=== PATIENT | male | born 1985 | race Caucasian/White ===

== ENCOUNTER → 2019-12-09 | Outpatient (CLI) | payer BC ==
[2019-12-09 18:18] LABS: HCT 45.8 % (39.0-53.0); HGB 15.1 gm/dL (13.0-17.5); RBC 4.88 m/uL (4.30-5.90); WBC 6.8 k/uL (3.8-10.6)
[2019-12-09 18:19] LABS: Mean Platelet Volume 7.3; Platelet Count 229 k/uL (150-450); RDW 12.7 % (11.5-15.5); Total Eosinophil Count 115 #EOS/uL (150-300)
[2019-12-10 02:07] LABS: Cat Epith & Dander IgE <0.10 kU/L; Dermato. farinae IgE <0.10 kU/L
[2019-12-10 02:08] LABS: Cladosporian herbarum IgE <0.10 kU/L; Cockroach IgE <0.10 kU/L; Dog Dander IgE <0.10 kU/L
[2019-12-10 02:09] LABS: Alternaria alternata IgE <0.10 kU/L; Aspergillus fumagatus IgE <0.10 kU/L
[2019-12-10 02:10] LABS: Birch IgE <0.10 kU/L; Elm IgE <0.10 kU/L; Maple (Box Elder) IgE <0.10 kU/L; Oak IgE <0.10 kU/L; Ragweed,Common IgE <0.10 kU/L
[2019-12-10 02:11] LABS: Red Top (Bentgrass) IgE <0.10 kU/L
[2019-12-10 02:44] LABS: Immunoglobulin E 1.16 IU/mL (0.00-114.00)
== END | disposition home or self-care (01) ==
LOC: LABWHC1 17:01
PROVIDERS: ATTEND Internal Medicine
DX: J30.2 Other seasonal allergic rhinitis (principal); J32.9 Chronic sinusitis, unspecified; J45.991 Cough variant asthma; R05 Cough
CPT/HCPCS: 36415; 82785; 85008; 85027; 86003

== ENCOUNTER → 2019-12-18 | Outpatient (CLI) | payer BC ==
--- NOTE | 2019-12-18 10:49 | CT ---
EXAMINATION TYPE: CT sinus wo con DATE OF EXAM: 12/18/2019 COMPARISON: None HISTORY: Chronic sinusitis CT DLP: [id number] mGycm CONTRAST: None The paranasal sinuses are examined in the axial plane at 2 mm thick sections. Reconstructed images i n the coronal plane were obtained. There are mucus retention cyst within the inferior right maxillary sinus. Prior ethmoidectomies been performed. The sphenoid sinuses are clear. The frontal sinuses are clear. The septum is evaluated. There is septal deviation to the left. There is been a prior left uncinate ectomy. Right akhil bullosa is present. The right ostiomeatal un it is patent. IMPRESSIONS: 1. Small retention cysts right maxillary sinus. 2. Postsurgical sinus changes.
== END | disposition home or self-care (01) ==
LOC: RADCTMAIN 07:24
PROVIDERS: ATTEND Internal Medicine
DX: J34.1 Cyst and mucocele of nose and nasal sinus (principal); J32.9 Chronic sinusitis, unspecified; Z98.890 Other specified postprocedural states
CPT/HCPCS: 70486

== ENCOUNTER → 2020-01-12 | Outpatient (CLI) | payer BC | END | disposition home or self-care (01) | DX: R91.1 Solitary pulmonary nodule (principal) | CPT/HCPCS: 71250 ==